=== PATIENT | male | born 1935 | race Caucasian/White ===

== ENCOUNTER 2020-04-16 07:56 | Observation (INO) ==
[2020-04-16] MEDS ORDERED: ASPIRIN 325 MG TABLET PO STA (08:08)
[2020-04-16] MEDS ORDERED: ALUM/MAG/SIMETH/LIDO VISC 1:1 30 ML BOTTLE PO STA (08:08)
[2020-04-16 08:26] LABS: Basophils % 0.3 % (0.0-0.8); Eosinophils % 0.1 % (0.00-10.9); Hematocrit 40.2 VOL% (42.0-52.0); Hemoglobin 13.6 GM/DL (14.0-18.0); Immature Granulocytes % 0.3 %; Immature Granulocytes Absolute 0.03 #; Lymphocytes # 0.9 10*3/uL (1.4-4.0); Lymphocytes % 9.8 % (21.2-54.2); Mean Corpuscular HGB Conc 33.8 GM/DL (32-36); Mean Corpuscular Volume 86.1 FL (87-102); Mean Platelet Volume 10.4 FL (9.6-12.0); Monocytes % 6.3 % (1.7-12.7); Neutrophils % 83.2 % (38.7-73.9); Platelet Count 228 T/CUMM (130-400); Red Blood Count 4.67 MC/CUMM (3.8-5.5); Red Cell Distribution Width 13.2 % (9.3-17.3); White Blood Count 9.5 T/CUMM (4-12)
[2020-04-16 08:45] LABS: Albumin 3.6 G/DL (3.4-5.0); Bilirubin,Total 0.6 MG/DL (0.2-1.0); Osmolality,Calculated 280.7 MOS/KG (273-304)
[2020-04-16 08:49] LABS: PT Patient Result 10.6 SECS (9.8-11.9); Partial Thromboplastin Time 21.1 SECS (23.9-33.8)
[2020-04-16] MEDS ORDERED: PROMETHAZINE 25 MG/1 ML VIAL IM PRN (09:18)
[2020-04-16] MEDS ORDERED: MORPHINE 4 MG/1 ML VIAL IV PRN (09:18)
[2020-04-16] MEDS ORDERED: GLUCAGON 1 MG VIAL IM PRN (09:18)
[2020-04-16] MEDS ORDERED: ONDANSETRON 4 MG/2 ML VIAL IV PRN (09:18)
[2020-04-16] MEDS ORDERED: DEXTROSE 50% 25 GM/50 ML VIAL IV PRN (09:18)
[2020-04-16] MEDS ORDERED: SODIUM CHLORIDE 0.9% 1,000 ML IV SCH (09:30)
[2020-04-16 09:49] LABS: Risk Ratio 3.04; Thyroid Stimulating Hormone 3.73 uIU/ml (0.358-3.74); VLDL CHOLESTEROL 11.8 MG/DL
[2020-04-16 10:18] LABS: Ferritin 41.2 ng/ml (26-388)
[2020-04-16] MEDS: INSULIN REGULAR 100 UNIT/ML SUBCUT SCH ×2 (18:39→19:34)
[2020-04-16] MEDS: ACETAMINOPHEN 325 MG TABLET PO PRN (19:56)
[2020-04-17 08:55] LABS: Basophils % 0.3 % (0.0-0.8); Eosinophils # 0.1 10*3/uL (0.0-0.87); Eosinophils % 0.4 % (0.00-10.9); Hematocrit 39.6 VOL% (42.0-52.0); Hemoglobin 13.2 GM/DL (14.0-18.0); Immature Granulocytes % 0.7 %; Lymphocytes # 0.8 10*3/uL (1.4-4.0); Lymphocytes % 5.6 % (21.2-54.2); Mean Corpuscular HGB Conc 33.3 GM/DL (32-36); Mean Corpuscular Volume 87.8 FL (87-102); Mean Platelet Volume 10.2 FL (9.6-12.0); Monocytes % 5.3 % (1.7-12.7); Neutrophils % 87.7 % (38.7-73.9); Platelet Count 206 T/CUMM (130-400); Red Blood Count 4.51 MC/CUMM (3.8-5.5); Red Cell Distribution Width 13.3 % (9.3-17.3); White Blood Count 13.8 T/CUMM (4-12)
[2020-04-17] MEDS ORDERED: PANTOPRAZOLE 40 MG TABLET PO SCH (09:00)
[2020-04-17 09:24] LABS: Calcium 8.4 MG/DL (8.5-10.1); Osmolality,Calculated 267.2 MOS/KG (273-304)
[2020-04-17] MEDS: INSULIN REGULAR 100 UNIT/ML SUBCUT SCH ×4 (09:24→20:51)
[2020-04-17 10:38] LABS: Sedimentation Rate-Westergren 20 MM/HR (0-20)
[2020-04-17] MEDS ORDERED: AZITHROMYCIN INJ 500 MG in SODIUM CHLORIDE 0.9% 250 ML IV SCH (12:30)
[2020-04-17] MEDS: cefTRIAXone 1,000 MG in SYRINGE 1 EACH IV SCH (14:35)
[2020-04-17] MEDS: AZITHROMYCIN 250 MG TABLET PO SCH (14:36)
[2020-04-17] MEDS: ENOXAPARIN 40 MG/0.4 ML SYRINGE SUBCUT SCH (20:51)
[2020-04-17] MEDS: ACETAMINOPHEN 325 MG TABLET PO PRN (20:51)
[2020-04-18] MEDS: AZITHROMYCIN 250 MG TABLET PO SCH (08:57)
[2020-04-18] MEDS: INSULIN REGULAR 100 UNIT/ML SUBCUT SCH ×4 (08:57→20:32)
[2020-04-18] MEDS: cefTRIAXone 1,000 MG in SYRINGE 1 EACH IV SCH (08:57)
[2020-04-18] MEDS: ACETAMINOPHEN 325 MG TABLET PO PRN (17:02)
[2020-04-18] MEDS: ENOXAPARIN 40 MG/0.4 ML SYRINGE SUBCUT SCH (20:32)
[2020-04-19] MEDS: INSULIN REGULAR 100 UNIT/ML SUBCUT SCH (07:31)
[2020-04-19] MEDS: cefTRIAXone 1,000 MG in SYRINGE 1 EACH IV SCH (08:19)
[2020-04-19] MEDS: AZITHROMYCIN 250 MG TABLET PO SCH (08:19)
[2020-04-19 09:09] VITALS: BP 118/74
== END 2020-04-19 11:25 | disposition home or self-care (01) ==
LOC: EDUNIT# → EDBD → N.EDINP 07:56 → N.ED 07:56 → SUATTDRO 10:00 → N.EDINP 17:55 → N.2E 18:31
PROVIDERS: ADMIT Internal Medicine; ATTEND Internal Medicine

== ENCOUNTER 2022-07-05 08:51 | Observation (INO) ==
[2022-07-05] MEDS ORDERED: DILTIAZEM 50 MG/10 ML VIAL IV STA (09:28)
[2022-07-05] MEDS ORDERED: SODIUM CHLORIDE 0.9% 1,000 ML IV STA (09:28)
[2022-07-05 09:59] LABS: Basophils # 0.1 10*3/uL (0.0-0.2); Basophils % 0.5 % (0.0-0.8); Eosinophils # 0.1 10*3/uL (0.0-0.87); Eosinophils % 1.2 % (0.00-10.9); Hematocrit 41.9 VOL% (42.0-52.0); Hemoglobin 13.6 GM/DL (14.0-18.0); Immature Granulocytes % 0.4 %; Immature Granulocytes Absolute 0.04 #; Lymphocytes # 1.7 10*3/uL (1.4-4.0); Lymphocytes % 18.6 % (21.2-54.2); Mean Corpuscular HGB Conc 32.5 GM/DL (32-36); Mean Corpuscular Volume 85.3 FL (87-102); Mean Platelet Volume 10.3 FL (9.6-12.0); Monocytes # 0.8 10*3/uL (0.11-0.8); Monocytes % 8.9 % (1.7-12.7); Neutrophils % 70.4 % (38.7-73.9); Platelet Count 244 T/CUMM (130-400); Red Blood Count 4.91 MC/CUMM (3.8-5.5); Red Cell Distribution Width 14.4 % (9.3-17.3); White Blood Count 9.1 T/CUMM (4-12)
[2022-07-05] MEDS ORDERED: DILTIAZEM INJ 100 MG in SODIUM CHLORIDE 0.9% 100 ML IV SCH (10:30)
[2022-07-05 10:32] LABS: Albumin 3.4 G/DL (3.4-5.0); Bilirubin,Total 0.4 MG/DL (0.20-1.00); Calcium 9.1 MG/DL (8.5-10.1); Osmolality,Calculated 280.4 MOS/KG (273-304); Potassium 3.9 MMOL/L (3.5-5.1); Total Protein 6.8 G/DL (6.4-8.2)
[2022-07-05] MEDS ORDERED: ONDANSETRON 4 MG/2 ML VIAL IV PRN (11:19)
[2022-07-05] MEDS ORDERED: hydrALAZINE 20 MG/1 ML VIAL IV PRN (11:19)
[2022-07-05] MEDS ORDERED: ACETAMINOPHEN 325 MG TABLET PO PRN (11:19)
[2022-07-05] MEDS ORDERED: ENOXAPARIN 40 MG/0.4 ML SYRINGE SUBCUT SCH (11:30)
[2022-07-05 12:55] LABS: Bacteria,Urine Occasional /HPF (Few); Bilirubin,Urine Negative (Negative); Blood, Urine Negative (Negative); Glucose,Urine (UA) Negative (Negative); Hyaline Casts,Urine 7 /LPF (0-3); Ketones,Urine Negative (Negative); Mucus,Urine Occasional /LPF (Occasional); Nitrite,Urine Negative (Negative); Protein,Urine Negative (Negative); RBC,Urine 1 /HPF (0-4); Urine Appearance CLEAR (Clear); Urine Color Yellow (Yellow); Urine Specific Gravity 1.005 (1.001-1.035); Urine Urobilinogen < 2.0 eU/dL (<2.0)
[2022-07-05 13:16] LABS: Thyroid Stimulating Hormone 2.62 uIU/ml (0.358-3.74)
[2022-07-05] MEDS: APIXABAN 5 MG TABLET PO SCH ×3 (15:58→22:09)
[2022-07-05] MEDS: DILTIAZEM CD 180 MG CAPSULE PO SCH (16:26)
[2022-07-06 05:04] LABS: Basophils % 0.7 % (0.0-0.8); Eosinophils # 0.2 10*3/uL (0.0-0.87); Eosinophils % 3.1 % (0.00-10.9); Hematocrit 37.8 VOL% (42.0-52.0); Hemoglobin 12.4 GM/DL (14.0-18.0); Immature Granulocytes % 0.3 %; Immature Granulocytes Absolute 0.02 #; Lymphocytes # 1.4 10*3/uL (1.4-4.0); Lymphocytes % 24.5 % (21.2-54.2); Mean Corpuscular HGB Conc 32.8 GM/DL (32-36); Mean Corpuscular Volume 86.9 FL (87-102); Mean Platelet Volume 10.1 FL (9.6-12.0); Monocytes # 0.5 10*3/uL (0.11-0.8); Monocytes % 9.1 % (1.7-12.7); Neutrophils % 62.3 % (38.7-73.9); Platelet Count 216 T/CUMM (130-400); Red Blood Count 4.35 MC/CUMM (3.8-5.5); Red Cell Distribution Width 14.5 % (9.3-17.3); White Blood Count 5.8 T/CUMM (4-12)
[2022-07-06 05:22] LABS: Calcium 8.3 MG/DL (8.5-10.1); Osmolality,Calculated 277.5 MOS/KG (273-304); Potassium 3.6 MMOL/L (3.5-5.1); Risk Ratio 3.54; VLDL Cholesterol 16.2 MG/DL
[2022-07-06] MEDS: DILTIAZEM CD 180 MG CAPSULE PO SCH (08:51)
[2022-07-06] MEDS: APIXABAN 5 MG TABLET PO SCH (08:51)
[2022-07-06] MEDS ORDERED: PANTOPRAZOLE 40 MG TABLET PO SCH (09:00)
[2022-07-06 12:28] VITALS: BP 112/74
== END 2022-07-06 13:51 | disposition home or self-care (01) ==
LOC: N.ED 08:51 → N.EDINP 08:51 → N.TELES 18:49
PROVIDERS: ADMIT Internal Medicine; ATTEND Internal Medicine